=== PATIENT | male | born 1995 | race Caucasian/White ===

== ENCOUNTER 2023-05-16 17:39 | Emergency (ER) | payer BC, SELFPAY ==
[2023-05-16 17:39] VITALS: PULSE 106
[2023-05-16 17:41] VITALS: BP 145/90; PULSE 120; RESP 18; TEMP 36.6; O2SAT 99; BMI 40.8
--- NOTE | 2023-05-16 17:48 | EKG12_ITS ---
Test Reason : PALPATATIONS Blood Pressure : / mmHG Vent. Rate : 097 BPM Atrial Rate : 097 BPM P-R Int : 170 ms QRS Dur : 096 ms QT Int : 328 ms P-R-T Axes : 043 041 016 degrees QTc Int : 416 ms Normal sinus rhythm Normal ECG Confirmed by KATRINA BURNS, FABIEN ([id number]), video editor BEATA WOODY ([id number]) on 05/18/2023 2:29:18 PM Referred By: Confirmed By:FABIEN HERNDON MD
[2023-05-16 17:50] VITALS: O2SAT 97
--- NOTE | 2023-05-16 17:53 | NURSING ---
NO OLD EKGS
--- NOTE | 2023-05-16 18:04 | RAD_ITS ---
STUDY: X-RAY CHEST REASON FOR EXAM: Male, 27 years old. chest pain TECHNIQUE: Single AP portable view of the chest. COMPARISON: 04/19/2015 FINDINGS: The lungs are clear and expanded. There is no demonstrated pleural abnormality. Normal size heart. Normal mediastinum and caitlyn. Normal visualized pulmonary arteries. Normal visualized aortic arch and descending thoracic aorta. Normal visualized thoracic spine. Normal visualized ribs, clavicles, and shoulders. There is no demonstrated abnormality of the visualized soft tissue structures of the upper abdomen. RAD/Chest 1 View (Portable) IMPRESSION: Normal x-ray examination of the chest. Electronically Signed: Ricci Banks MD at 18:19 EDT ,
[2023-05-16 18:06] LABS: Absolute Lymphocyte Count 3.04 X10^3/uL (0.83-4.51); Absolute Neutrophil Count 8.7 X10^3/uL (2.0-7.7); Basophil% 0.8 % (0-1); Eosinophil# 0.25 X10^3/uL; Eosinophils% 1.9 % (0-5); Hematocrit 48.5 % (40-54); Hemoglobin 16.1 g/dL (13.0-16.5); Lymphocyte # 3.04 X10^3/ul (0.83-4.51); Lymphocyte % 23.2 % (19-41); Mean Corp Hgb Conc 33.2 g/dL (32-36); Mean Corpuscular Hgb 30.2 pg (27.0-32.0); Mean Platelet Vol. 8.6 fl (6.2-12.0); Monocyte# 0.94 X10^3/uL; Monocyte% 7.2 % (0-10); NRBC Flagged by Analyzer 0 % (0-5); Neutrophil # 8.68 X10^3/uL (2.7-7.7); Neutrophil % 66.3 % (47-70); Platelet Count 348 K/mm3 (150-450); RBC Distribution Width CV 13.2 % (11.6-14.6); RBC Distribution Width SD 43.4 fl (35.1-43.9); Red Blood Count 5.33 M/mm3 (4.6-6.2); White Blood Count 13.1 K/mm3 (4.4-11.0)
[2023-05-16 18:26] LABS: D-Dimer Quantitative (DVT/PE) < 0.27 FEU/ug/m (0.27-0.49)
[2023-05-16 18:28] LABS: Anion Gap 6 (5-15); BUN 12 mg/dL (7-18); BUN/Creat Ratio 10.4 RATIO (10-20); Calcium,Total 8.8 mg/dL (8.5-10.1); Chloride 106 mmol/L (98-107); Creatinine, Serum 1.15 mg/dL (0.70-1.30); EST Glomerular Filtration Rate 80 mL/min (>60); Est Glom Filt Rate - Afr Amer 97 mL/min (>60); Estimated Creatinine Clearance 98.74 ml/min; Glucose 93 mg/dL (74-106); Potassium 4.1 mmol/L (3.5-5.1); Sodium Level 137 mmol/L (136-145); Troponin-I HS 5 pg/mL (3.0-78.0)
[2023-05-16] MEDS: 0.9% Normal Saline (1000mL) 1,000 ML 999 ML IV (18:33)
--- NOTE | 2023-05-16 18:37 | EDS_ITS ---
HPI History of Present Illness Chief Complaint: Palpitations Narrative Narrative: 27-year-old male with palpitations and rapid heart rate. He states started this morning when he woke up. He states he typically drinks about 3 cups of coffee per day. He has been drinking for for the last 2 days. States he typically exercises and drinks about 1 gallon of water per day. Has been drinking only half a gallon per day. Today notes his heart rate was in the 140s this morning. He started to have chest pressure about 3 hours ago which is mild. He is also complaining of lightheadedness. He states when he got up to stand to go get a drink he felt lightheaded and saw stars. He is making urine. Fevers, chills, cough. No nausea, vomiting. PFSH PFSH Home Medications NK 05/16/23 [History Last Taken Unknown] Allergy/AdvReac Type Severity Reaction Status Date / Time amoxicillin [Amoxicillin] Allergy Mild Rash Verified 05/16/23 17:41 Social History Smoking Status: Current every day smoker tobacco type: smokeless tobacco ROS ROS ED Constitutional Constitutional ED: Denies chills, fever(s) or sweats Eyes Eyes: Denies blurry vision or change in vision ENT ENT ED: Denies ear pain or sore throat Cardiovascular Cardiovascular: Reports chest pain, palpitations and racing heartbeat Respiratory/Chest Respiratory/Chest: Reports dyspnea; Denies sputum Gastrointestinal Gastrointestinal: Denies abdominal pain, constipation, diarrhea, nausea or vomiting Genitourinary Genitourinary ED: Denies dysuria, hematuria or urinary frequency Musculoskeletal Musculoskeletal: Denies arthralgias, myalgias or neck pain Integumentary Denies abscess, Abrasions or rash Neurologic Neurologic: Denies headache(s), paresthesias or weakness Psychiatric Psychiatric: Denies anxiety, depression, suicidal ideation or suicidal thoughts Endocrine Endocrinology: Denies polydipsia or polyuria EXAM Physical Exam Const Vital Signs: 05/16/23 17:41 05/16/23 17:39 05/16/23 17:47 Temperature 98 F Temperature Source Temporal Pulse Rate 120 H 106 H Respiratory Rate 18 Respiratory Effort Normal Non-Labored Blood Pressure 145/90 H Blood Pressure Mean 108 Pulse Ox 99 Oxygen Delivery Method Room Air 05/16/23 17:50 05/16/23 19:39 Temperature Temperature Source Pulse Rate 88 Respiratory Rate 16 Respiratory Effort Blood Pressure Blood Pressure Mean Pulse Ox 97 98 Oxygen Delivery Method Room Air Room Air Positive well nourished General Appearance ED: NAD PDAILLA Reports moist mucous membranes normocephalic Eyes PERRL and EOMs intact bilaterally Chest Wall inspection of chest normal Resp normal respiratory effort and clear to auscultation bilaterally Auscultation: Negative for rales, rhonchi or wheezes Cardio regular rhythm Rate: tachycardic GI normal to inspection, nondistended, normoactive bowel sounds Extremity normal to inspection General Extremety ED: Negative for edema General Extremity: Negative for edema Neuro oriented x3 and CN's II-XII intact bilaterally Motor Exam: strength 5/5 throughout Psych mental status grossly normal Skin no rashes or lesions noted Heart Score History: Slightly/Non-Suspicious ECG: Normal Age: </= 45 years Risk Factors: 1 or 2 Risk Factors Troponin: </= Normal Limit Score: 1 MDM MDM MDM Narrative Medical decision making narrative: -year-old male with palpitations. He states has had rapid heart rate all day. He developed chest pressure about 3 hours ago. Its been constant. He describes lightheadedness as well. Patient states he is on testosterone replacement therapy. Differential includes but is not limited to ACS, PE, pneumonia, pneumothorax, muscle strain, costochondritis, dehydration, electrolyte abnormalities. CBC will be obtained to assess white blood cell count, hemogl obin, platelets. BMP to assess renal function, electrolytes, glucose, anion gap. High-sensitivity troponin and EKG will be obtained to assess for dysrhythmia/ischemia. Chest x-ray to rule out pneumonia. CBC shows a slight leukocytosis at 13.1. Hemoglobin stable at 16.1. Platelets normal at 348. Renal function and electrolytes unremarkable. High-sensitivity troponin less is 5. I will obtain a delta troponin since this pain started about 3 hours ago. D-dimer is negative at less than 0.27. EKG on my interpretation shows a sinus rhythm at a ventricular rate of 97 bpm without sign of ischemic change or ectopy. Chest x-ray my interpretation shows no acute process. The radiologist services and agrees. Patient is given a liter normal saline. Delta troponin is 6. Patient counseled that his bilateral was all normal. Counseled him to watch his caffeine and increase his fluid intake. At this point I think he stable for discharge. We discussed the possibility of SVT and we also discussed vagal maneuvers. Return precautions were discussed at length. Impression: 1. Chest pain 2. Palpitations Lab Data Attestation: I reviewed the patient's lab results. Labs: Laboratory Results - last 24 hr 05/16/23 05/16/23 17:58 20:00 WBC 13.1 H RBC 5.33 Hgb 16.1 Hct 48.5 MCV 91.0 MCH 30.2 MCHC 33.2 RDW Std Deviation 43.4 RDW Coeff of Denise 13.2 Plt Count 348 MPV 8.6 Immature Gran % (Auto) 0.600 Neut % (Auto) 66.3 Lymph % (Auto) 23.2 [place] % (Auto) 7.2 Eos % (Auto) 1.9 Baso % (Auto) 0.8 Absolute Neuts (auto) 8.7 H Absolute Lymphs (auto) 3.04 Nucleated RBC % 0 D-Dimer Quant (PE/DVT) < 0.27 L Sodium 137 Potassium 4.1 Chloride 106 Carbon Dioxide 25.0 Anion Gap 6 BUN 12 Creatinine 1.15 Estim Creat Clear Calc 98.74 Est GFR (MDRD) Af Amer 97 Est GFR (MDRD) Non-Af 80 BUN/Creatinine Ratio 10.4 Glucose 93 Calcium 8.8 Troponin I High Sens 5 6 Radiography Diagnostic Testing: Clinical Impression(s) from Imaging Studies Chest X-Ray 05/16/23 18:04 IMPRESSION: Normal x-ray examination of the chest. Electronically Signed: Ricci Banks MD at 18:19 EDT , Discharge Plan Triage Chief Complaint: Palpitations ED Provider: Johnathan Draper Dx/Rx/DC Orders Instructions: ED Chest Pain, Uncertain Cause, ED Palpitations Prescriptions: No Action NK Primary Care Provider: Benjamin Gonzalez Referrals: Benjamin Gonzalez MD [Primary Care Provider] - Disposition Disposition: Home, Self Care
[2023-05-16 19:39] VITALS: PULSE 88; RESP 16; O2SAT 98
[2023-05-16 20:21] LABS: Troponin-I HS 6 pg/mL (3.0-78.0)
[2023-05-16 20:47] VITALS: RESP 16
== END 2023-05-16 20:48 | disposition home or self-care (01) ==
PROVIDERS: Emergency Provider Student in an Organized Health Care Education/Training Program; PCP Family Medicine; Visit Provider Student in an Organized Health Care Education/Training Program
DX: R07.9 Chest pain, unspecified (principal); R00.2 Palpitations; F17.220 Nicotine dependence, chewing tobacco, uncomplicated
CPT/HCPCS: 71045; 80048; 84484; 85025; 85379; 87428; 93005; 99284; J7030; A4216

== ENCOUNTER 2024-12-31 09:58 | Emergency (ER) | payer BC, SELFPAY ==
[2024-12-31 09:58] VITALS: BP 136/100; PULSE 87; RESP 16; TEMP 36.6; O2SAT 99; BMI 40.3
--- NOTE | 2024-12-31 10:16 | RAD_ITS ---
PROCEDURE: CHEST 1 VIEW (PORTABLE) 12/31/2024 REASON FOR EXAM: CHEST PAIN TECHNIQUE: Frontal view of the chest. COMPARISON: 05/16/2023 FINDINGS: No focal consolidations. No pleural effusion or pneumothorax. Cardiac silhouette is unchanged. No acute fractures. RAD/Chest 1 View (Portable) IMPRESSION: No focal consolidations. Reading Location: [id number]
--- NOTE | 2024-12-31 10:16 | EKG12_ITS ---
Test Reason : CP Blood Pressure : */* mmHG Vent. Rate : 75 BPM Atrial Rate : 75 BPM P-R Int : 160 ms QRS Dur : 100 ms QT Int : 368 ms P-R-T Axes : 14 37 19 degrees QTcB Int : 410 ms Normal sinus rhythm Normal ECG Confirmed by Marcus Palm ([id number]), editor in chief PILAR WEBSTER ([id number]) on 01/02/2025 10:52:50 AM Referred By: Confirmed By: Marcus Palm
--- NOTE | 2024-12-31 10:17 | ED.VIS.CHEST ---
HPI History of Present Illness Chief Complaint: Chest Pain Informant: patient and spouse/S.O. Narrative Narrative: 29-year-old male presenting to the emergency room with a chief complaint of palpitations. Patient states that over the past couple weeks he has been experiencing intermittent episodes where he feels his heart racing. States that his watch was telling him that his heart rate was around 140 and he has not correlated it by palpating his pulse. He states that he often feels that it is related to just after eating. It can occur when he is just sitting at his desk. He has started to develop an ache chest discomfort on the left side of his chest rating to his axilla when it occurs. He states that he routinely goes to the gym at least 3 times a week. During cardiovascular training he states is not on typical for his heart rate to be 150-160 and he does not feel the discomfort. During anaerobic training he has not experienced any syncope or symptomology. He had a similar episodes about 2 years ago. He recently restarted testosterone therapy through a private clinic [facility]CP[facility] Medications ?Medication ?Instructions ?Recorded ?Last Taken ?Type anastrozole 1 mg tablet 1.25 mg PO .COMPLEX 12/31/24 12/29/24 History testosterone cypionate 200 mg/mL 60 mg subcut .COMPLEX 12/31/24 12/29/24 History intramuscular oil (Depo-Testosterone) Allergy/AdvReac Type Severity Reaction Status Date / Time amoxicillin (Amoxicillin) Allergy Mild Rash Verified 12/31/24 09:58 Surgical History History of adenoidectomy History of lymph node excision History of appendectomy Social History Smoking Status: Current every day smoker tobacco type: smokeless tobacco ROS ROS ED Constitutional Constitutional ED: Denies chills, fever(s) or weight loss Eyes Eyes: Denies change in vision or diplopia ENT ENT ED: Denies ear pain, rhinorrhea or sore throat Cardiovascular Cardiovascular: Reports as per HPI, chest pain, palpitations and racing heartbeat; Denies orthopnea Respiratory/Chest Respiratory/Chest: Denies cough, dyspnea or orthopnea Gastrointestinal Gastrointestinal: Denies abdominal pain, diarrhea, nausea or vomiting Genitourinary Genitourinary ED: Denies dysuria, hematuria or urinary frequency Musculoskeletal Musculoskeletal: Denies arthralgias or myalgias Integumentary Denies abscess or rash Neurologic Neurologic: Denies headache(s) or weakness Psychiatric Psychiatric: Denies anxiety, depression, suicidal ideation or suicidal thoughts Endocrine Endocrinology: Denies polydipsia, polyphagia or polyuria Allergic/Immunologic Allergic/Immunologic ED: Denies mouth swelling, tongue swelling or urticaria EXAM Physical Exam Const Vital Signs: 12/31/24 09:58 12/31/24 11:58 12/31/24 13:00 Temperature 97.8 F Temperature Source Oral Pulse Rate 87 66 87 Respiratory Rate 16 17 14 Blood Pressure 136/100 H 140/78 H 132/66 H Blood Pressure Mean 112 98 88 Pulse Ox 99 96 99 Oxygen Delivery Method Room Air Room Air Room Air Positive well nourished and well developed General Appearance ED: well developed HEENT Reports normocephalic, head/scalp atraumatic and moist mucous membranes Eyes PERRL and EOMs intact bilaterally Neck no lymphadenopathy, supple and no JVD Resp normal respiratory effort and clear to auscultation bilaterally Cardio regular rate, regular rhythm and no murmurs GI normal to inspection, nondistended, normoactive bowel sounds and non-tender Palpation: soft Back/Spine no CVA tenderness and normal ROM Extremity normal to inspection General Extremety ED: Negative for edema General Extremity: Negative for edema Neuro oriented x3 and CN's II-XII intact bilaterally Sensorium / Orientation: alert Motor Exam: strength 5/5 throughout Psych mental status grossly normal Mood & Affect: Negative for depressed or tearful Skin no rashes or lesions noted and no wounds MDM MDM MDM Narrative Medical decision making narrative: Differential diagnosis includes but not limited to cardiac dysrhythmia acute coronary syndrome pulmonary embolism pneumothorax thyroid dysfunction electrolyte abnormalities anemia cardiomyopathy EKG is nonischemic and shows a sinus rhythm with no concerning features. My independent interpretation of the chest x-ray is no acute process. CBC shows a white count of 9.2 hemoglobin of 15.3 and a platelet count of 346. Normal differential. 2 sets of cardiac enzymes are normal. D-dimer is negative. TSH is normal. Magnesium is normal. Glucose noted to be 106. Patient was advised he can certainly eat. His significant other went and got food and he was observed on the monitor. At this point I think the patient can be discharged home. I do not think this is high likelihood of coronary artery disease. This could very well be a tacky dysrhythmia. I would encourage further outpatient evaluation such as a Holter monitor. History & Record Review Discussion w/independent historian: Patient and Significant other Additional record(s) reviewed:: Prior ED visit and Prior labs Lab Data Attestation: I reviewed the patient's lab results. Labs: Laboratory Results - last 24 hr 12/31/24 12/31/24 10:28 12:29 WBC 9.2 RBC 5.09 Hgb 15.3 Hct 44.7 MCV 87.8 MCH 30.1 MCHC 34.2 RDW Std Deviation 44.4 H RDW Coeff of Denise 13.8 Plt Count 346 MPV 8.6 Immature Gran % (Auto) 0.400 Neut % (Auto) 69.6 Lymph % (Auto) 21.6 [place] % (Auto) 6.0 Eos % (Auto) 1.7 Baso % (Auto) 0.7 Absolute Neuts (auto) 6.4 Absolute Lymphs (auto) 1.98 Nucleated RBC % 0 D-Dimer Quant (PE/DVT) < 0.27 L Sodium 140 Potassium 4.3 Chloride 106 Carbon Dioxide 22.1 Anion Gap 12 BUN 11 Creatinine 1.06 Estim Creat Clear Calc 136.61 Est GFR (MDRD) Non-Af 97 BUN/Creatinine Ratio 10.8 Glucose 106 H Calcium 9.2 Magnesium 2.2 Total Bilirubin 0.35 AST 33 ALT 98 H Alkaline Phosphatase 52 Troponin T High Sens < 6 Troponin T Hi Sens 2 Hr 6 Total Protein 6.9 Albumin 4.5 Globulin 2.4 Albumin/Globulin Ratio 1.9 TSH 1.440 Radiography Diagnostic Testing: Clinical Impression(s) from Imaging Studies Chest X-Ray 12/31/24 10:16 IMPRESSION: No focal consolidations. Reading Location: [facility] EKG Initial EKG: Attestation: I personally reviewed and interpreted this EKG as follows: Comments: Normal sinus rhythm ventricular rate of 75 bpm. No preexcitation or prolonged QT is noted. Prior EKG tracings: available for review Prior: Unchanged (May 2023) Discharge Plan Triage Chief Complaint: Chest Pain ED Provider: Lio Linton Dx/Rx/DC Orders Clinical Impression: Heart palpitations, Chest pain Instructions: ED About Arrhythmias, ED Chest Pain, Uncertain Cause Prescriptions: No Action testosterone cypionate [Depo-Testosterone] 200 mg/mL oil 60 mg subcut .COMPLEX Rx Instructions: 60 mg subcutaneously 3XW; 180 mg subcutaneously; anastrozole 1 mg tablet 1.25 mg PO .COMPLEX Rx Instructions: 1.25 mg orally 3XW; Primary Care Provider: Benjamin Gonzalez Referrals: Benjamin Gonzalez MD [Primary Care Provider] - As soon as possible Activity Restrictions/Additional Instructions: When your watch alerts you please try to correlate by palpating your pulse there in your wrist or your neck. Please discuss Holter monitor further evaluation with your doctor. Print Language: Turkish Disposition Disposition: Home, Self Care
[2024-12-31 10:40] LABS: Absolute Lymphocyte Count 1.98 X10^3/uL (0.83-4.51); Absolute Neutrophil Count 6.4 X10^3/uL (2.0-7.7); Basophil# 0.06 X10^3/uL; Basophil% 0.7 % (0-1); Eosinophil# 0.16 X10^3/uL; Eosinophils% 1.7 % (0-5); Hematocrit 44.7 % (40-54); Hemoglobin 15.3 g/dL (13.0-16.5); Lymphocyte # 1.98 X10^3/ul (0.83-4.51); Lymphocyte % 21.6 % (19-41); Mean Corp Hgb Conc 34.2 g/dL (32-36); Mean Corpuscular Hgb 30.1 pg (27.0-32.0); Mean Corpuscular Volume 87.8 fL (80-94); Mean Platelet Vol. 8.6 fl (6.2-12.0); Monocyte# 0.55 X10^3/uL; NRBC Flagged by Analyzer 0 % (0-5); Neutrophil # 6.37 X10^3/uL (2.7-7.7); Neutrophil % 69.6 % (47-70); Platelet Count 346 K/mm3 (150-450); RBC Distribution Width CV 13.8 % (11.6-14.6); RBC Distribution Width SD 44.4 fl (35.1-43.9); Red Blood Count 5.09 M/mm3 (4.6-6.2); White Blood Count 9.2 K/mm3 (4.4-11.0)
[2024-12-31 10:53] LABS: D-Dimer Quantitative (DVT/PE) < 0.27 FEU/ug/m (0.27-0.49)
[2024-12-31 11:23] LABS: ALB/GLOB Ratio 1.9 RATIO (0.9-2.4); AST(SGOT) 33 U/L (<=37); Alanine Aminotransfer ALT/SGPT 98 U/L (<=46); Albumin, Serum 4.5 g/dL (3.5-5.0); Alkaline Phosphatase 52 U/L (40-129); Anion Gap 12 (5-15); BUN 11 mg/dL (4-19); BUN/Creat Ratio 10.8 RATIO (10-20); Calcium,Total 9.2 mg/dL (7.6-11.0); Carbon Dioxide 22.1 mmol/L (21.0-32.0); Chloride 106 mmol/L (98-108); Creatinine, Serum 1.06 mg/dL (0.70-1.20); EST Glomerular Filtration Rate 97 (>60); Estimated Creatinine Clearance 136.61 ml/min (50-250); Globulin 2.4 g/dL (2.2-4.2); Glucose 106 mg/dL (70-99); Magnesium 2.2 mg/dL (1.5-2.2); Potassium 4.3 mmol/L (3.3-5.1); Protein, Total 6.9 g/dL (5.9-8.4); Sodium Level 140 mmol/L (133-145); Total Bilirubin 0.35 mg/dL (0.00-1.30); Troponin T High Sensitivity < 6 ng/L (<=22)
[2024-12-31 11:58] VITALS: BP 140/78; PULSE 66; RESP 17; O2SAT 96
[2024-12-31 13:00] VITALS: BP 132/66; PULSE 87; RESP 14; O2SAT 99
[2024-12-31 13:04] LABS: Troponin T High Sens 2 HR 6 ng/L (<=22)
[2024-12-31 13:22] VITALS: BP 132/66; PULSE 87; RESP 14; TEMP 36.6; O2SAT 99
== END 2024-12-31 13:26 | disposition home or self-care (01) ==
PROVIDERS: Emergency Provider Emergency Medicine; PCP Family Medicine; Visit Provider Emergency Medicine
DX: R00.2 Palpitations (principal); R07.9 Chest pain, unspecified; F17.220 Nicotine dependence, chewing tobacco, uncomplicated
CPT/HCPCS: 71045; 80053; 83735; 84443; 84484; 85025; 85379; 93005; 99284; A4216